=== PATIENT | male | born 1990 | race Caucasian/White ===

== ENCOUNTER → 2016-11-30 | Outpatient (CLI) | payer OTHER ==
--- NOTE | 2016-11-30 10:01 | XR ---
EXAMINATION TYPE: XR forearm RT DATE OF EXAM: 11/30/2016 9:56 AM COMPARISON: NONE HISTORY: Pain Two views of the forearm demonstrate that the osseous structures appear to be intact and the joint sp aces appear to be preserved. There is no acute fracture or dislocation. IMPRESSION: 1. No acute fracture or dislocation
== END | disposition home or self-care (01) ==
LOC: RADXRMAIN 09:36
PROVIDERS: ATTEND Emergency Medicine
DX: S56.911A Strain of unspecified muscles, fascia and tendons at forearm level, right arm, initial encounter (principal); X50.0XXA Overexertion from strenuous movement or load, initial encounter

== ENCOUNTER 2017-08-14 18:01 | Emergency (ER) | payer OTHER ==
[2017-08-14 18:05] VITALS: RESP 16
--- NOTE | 2017-08-14 18:24 | ED ---
General Adult HPI - General Chief complaint: Dental/Oral Stated complaint: dental pain Time Seen by Provider: 08/14/17 18:07 Source: patient, RN notes reviewed Mode of arrival: ambulatory Limitations: no limitations - History of Present Illness Initial comments: Patient with 27-year-old male who presents emergency room today with chief complaint of increased dental pain. He does admit that he does feel he was eating some hard candy in his tooth broke. He does admit that he's had increased pain over the last day. Patient does admit some swelling locally. Denies any drainage or discharge. She is trying to get into a dentist but found out that he does not have any dental insurance. He states he also tried to go to urgent care found out that his insurance is no longer current. Patient denies any other complaints. States been using [id number] ibuprofen for pain. Patient denies any recent fever, chills, shortness of breath , chest pain, back pain, abdominal pain, nausea or vomiting, numbness or tingling, dysuria or hematuria, constipation or diarrhea, headaches or visual changes, or any other complaints. - Related Data Previous Rx's Medication Instructions Recorded Hydrocodone/Acetaminophen [[place]hel 1 each PO Q6HR PRN #10 tab 08/14/17 5-325] Penicillin V Potassium [Pen Vee K] 500 mg PO QID #40 tablet 08/14/17 Allergies Allergy/AdvReac Type Severity Reaction Status Date / Time No Known Allergies Allergy Verified 08/14/17 18:05 Review of Systems ROS Statement: Those systems with pertinent positive or pertinent negative responses have been documented in the HPI. ROS Other: All systems not noted in ROS Statement are negative. Past Medical History Additional Past Medical History / Comment(s): AUTOIMMUNE HEMOLITIC ANEMIA History of Any Multi-Drug Resistant Organisms: None Reported Past Surgical History: No Surgical Hx Reported Past Psychological History: No Psychological Hx Reported Smoking Status: Current every day smoker Past Alcohol Use History: None Reported Past Drug Use History: None Reported General Exam - General Exam Comments Initial Comments: General: The patient is awake and alert, in no distress, and does not appear acutely ill. Eye: Pupils are equal, round and reactive to light, extra-ocular movements are intact. No nystagmus. There is normal conjunctiva bilaterally. No signs of icterus. Ears, nose, mouth and throat: There are moist mucous membranes and no oral lesions. She does have dental fracture at the gumline and tooth #2. Locally tender in this area. Uvula midline. Patient's swallows without difficulty. Neck: The neck is supple, there is no tenderness or JVD. Cardiovascular: There is a regular rate and rhythm. No murmur, rub or gallop is appreciated. Respiratory: Lungs are clear to auscultation, respirations are non-labored, breath sounds are equal. No wheezes, stridor, rales, or rhonchi. Musculoskeletal: Normal ROM, no tenderness. Strength 5/5. Sensation intact. Pulses equal bilaterally 2+. Neurological: A&O x 3. CN II-XII intact, There are no obvious motor or sensory deficits. Coordination appears grossly intact. Speech is normal. Skin: Skin is warm and dry and no rashes or lesions are noted. Psychiatric: Cooperative, appropriate mood & affect, normal judgment. Limitations: no limitations Course Vital Signs 08/14/17 18:03 Temperature 97.5 F L Pulse Rate 89 Respiratory 16 Rate Blood Pressure 146/77 O2 Sat by Pulse 98 Oximetry Medical Decision Making - Medical Decision Making Patient Lauren prescription for pain medication to use. Advised to continue with ibuprofen as well. Advised to follow dentist given information for that.. Antibiotics for infection. Advised return for any other concerns. Disposition Clinical Impression: Pain, dental Disposition: HOME SELF-CARE Condition: Good Instructions: Dental Abscess (ED) Additional Instructions: Please use medication as discussed. Please follow-up with oral surgeon as discussed. Please return to emergency room if the symptoms increase or worsen or for any other concerns. Prescriptions: Hydrocodone/Acetaminophen [Bethel 5-325] 1 each PO Q6HR PRN #10 tab PRN Reason: Pain Penicillin V Potassium [Pen Vee K] 500 mg PO QID #40 tablet Referrals: Zaid Cardoso MD [Primary Care Provider] - 1-2 days Time of Disposition: 18:23
[2017-08-14 18:38] VITALS: BP 130/76; PULSE 81; TEMP 97.2
== END 2017-08-14 18:39 | disposition home or self-care (01) ==
LOC: EC 18:01
DX: K08.89 Other specified disorders of teeth and supporting structures (principal); R22.0 Localized swelling, mass and lump, head; F17.200 Nicotine dependence, unspecified, uncomplicated
CPT/HCPCS: 99282

== ENCOUNTER 2017-12-05 15:15 | Emergency (ER) | payer BC, OTHER ==
[2017-12-05 15:19] VITALS: RESP 16
[2017-12-05 16:29] LABS: Appearance,Urine Clear (Clear); Bilirubin,Urine Negative (Negative); Blood,Urine Negative (Negative); Color,Urine Light Yellow; Glucose,Urine (UA) Negative (Negative); Ketones,Urine Negative (Negative); Leukocyte Esterase,Urine Negative (Negative); Nitrite,Urine Negative (Negative); Protein,Urine Negative (Negative); Specific Gravity,Urine 1.008 (1.001-1.035); Urobilinogen,Urine <2.0 mg/dL (<2.0)
--- NOTE | 2017-12-05 16:40 | ED ---
Male Urogenital HPI - General Chief complaint: Urogenital Stated complaint: blood in urine/near syncope Time Seen by Provider: 12/05/17 16:15 Source: patient, RN notes reviewed Mode of arrival: ambulatory Limitations: no limitations - History of Present Illness Initial comments: This a 27-year-old male presents emergency Department chief complaint of hematuria. Patient states he noticed blood in his urine for last 2 days. Patient states also when he got up around 1:30 AM to his bathroom he felt very lightheaded and fell using the past though. 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 Patient states his happened at age 5 he had suture blood transfusion at times had no issues. Patient does not take any current medications. No history kidney stones. He states the hematuria is painless denies any nausea vomiting diarrhea constipation no melanoma and she is a. Patient denies any headache or dizziness at this time he did have an episode of chest pain earlier. Patient states that symptoms feel like he is on a pass out lasted approximately 10 minutes. - Related Data Home Medications Medication Instructions Recorded Confirmed [id number] 4 tab PO TID PRN 12/05/17 12/05/17 [Excedrin] Ibuprofen [Motrin Ib] 1,000 mg PO BID PRN 12/05/17 12/05/17 Allergies Allergy/AdvReac Type Severity Reaction Status Date / Time No Known Allergies Allergy Verified 12/05/17 16:20 Review of Systems ROS Statement: Those systems with pertinent positive or pertinent negative responses have been documented in the HPI. ROS Other: All systems not noted in ROS Statement are negative. Past Medical History Additional Past Medical History / Comment(s): AUTOIMMUNE HEMOLITIC ANEMIA History of Any Multi-Drug Resistant Organisms: None Reported Past Surgical History: No Surgical Hx Reported Past Psychological History: No Psychological Hx Reported Smoking Status: Current every day smoker Past Alcohol Use History: None Reported Past Drug Use History: None Reported General Exam Limitations: no limitations General appearance: alert, in no apparent distress Head exam: Present: atraumatic, normocephalic, normal inspection Neck exam: Present: normal inspection. Absent: tenderness, meningismus, lymphadenopathy Respiratory exam: Present: normal lung sounds bilaterally. Absent: respiratory distress, wheezes, rales, rhonchi, stridor Cardiovascular Exam: Present: regular rate, normal rhythm, normal heart sounds. Absent: systolic murmur, diastolic murmur, rubs, gallop, clicks GI/Abdominal exam: Present: soft, normal bowel sounds. Absent: distended, tenderness, guarding, rebound, rigid Extremities exam: Present: normal inspection, full ROM, normal capillary refill. Absent: tenderness, pedal edema, joint swelling, calf tenderness Back exam: Absent: CVA tenderness (R), CVA tenderness (L) Skin exam: Present: warm, dry, intact, normal color. Absent: rash Course Vital Signs 12/05/17 15:17 Temperature 97.4 F L Pulse Rate 86 Respiratory 16 Rate Blood Pressure 138/81 O2 Sat by Pulse 99 Oximetry Medical Decision Making - Medical Decision Making 27-year-old male presented unresponsive to complaint of hematuria. There is no evidence of hematuria here. Patient lab work is unremarkable. Patient's urinalysis does not show any evidence of blood, bacteria or protein. Patient EKG is unremarkable. Patient states that he felt a snap pass out when he got up in the middle of the night. Patient may have had a syncopal or near syncope related to vasovagal episode. Patient will follow-up with PCP follow-up with urology if symptoms persist. Return parameters were discussed. - Lab Data Result diagrams: 12/05/17 16:55 12/05/17 16:55 Lab Results 12/05/17 12/05/17 12/05/17 Range/Units 16:00 16:55 16:55 WBC 10.1 (3.8-10.6) k/uL RBC 4.99 (4.30-5.90) m/uL Hgb 14.4 (13.0-17.5) gm/dL Hct 43.4 (39.0-53.0) % MCV 87.0 (80.0-100.0) fL MCH 29.0 (25.0-35.0) pg MCHC 33.3 (31.0-37.0) g/dL RDW 13.3 (11.5-15.5) % Plt Count 217 (150-450) k/uL Neutrophils % 67 % Lymphocytes % 21 % Monocytes % 8 % Eosinophils % 3 % Basophils % 0 % Neutrophils # 6.7 (1.3-7.7) k/uL Lymphocytes # 2.1 (1.0-4.8) k/uL Monocytes # 0.8 (0-1.0) k/uL Eosinophils # 0.4 (0-0.7) k/uL Basophils # 0.0 (0-0.2) k/uL PT (9.0-12.0) sec INR (<1.2) APTT (22.0-30.0) sec Sodium 145 (137-145) mmol/L Potassium 3.9 (3.5-5.1) mmol/L Chloride 107 (98-107) mmol/L Carbon Dioxide 27 (22-30) mmol/L Anion Gap 11 mmol/L BUN 17 (9-20) mg/dL Creatinine 0.69 (0.66-1.25) mg/dL Est GFR (CKD-EPI)AfAm >90 (>60 ml/min/1.73 sqM) Est GFR (CKD-EPI)NonAf >90 (>60 ml/min/1.73 sqM) Glucose 78 (74-99) mg/dL Calcium 9.6 (8.4-10.2) mg/dL Total Bilirubin 0.3 (0.2-1.3) mg/dL AST 25 (17-59) U/L ALT 35 (21-72) U/L Alkaline Phosphatase 67 (38-126) U/L Total Protein 6.9 (6.3-8.2) g/dL Albumin 4.3 (3.5-5.0) g/dL Lipase 59 (23-300) U/L Urine Color Light Yellow Urine Appearance Clear (Clear) Urine pH 7.0 (5.0-8.0) Ur Specific [place] 1.008 (1.001-1.035) Urine Protein Negative (Negative) Urine Glucose (UA) Negative (Negative) Urine Ketones Negative (Negative) Urine Blood Negative (Negative) Urine Nitrite Negative (Negative) Urine Bilirubin Negative (Negative) Urine Urobilinogen <2.0 (<2.0) mg/dL Ur Leukocyte Esterase Negative (Negative) 12/05/17 Range/Units 16:55 WBC (3.8-10.6) k/uL RBC (4.30-5.90) m/uL Hgb (13.0-17.5) gm/dL Hct (39.0-53.0) % MCV (80.0-100.0) fL MCH (25.0-35.0) pg MCHC (31.0-37.0) g/dL RDW (11.5-15.5) % Plt Count (150-450) k/uL Neutrophils % % Lymphocytes % % Monocytes % % Eosinophils % % Basophils % % Neutrophils # (1.3-7.7) k/uL Lymphocytes # (1.0-4.8) k/uL Monocytes # (0-1.0) k/uL Eosinophils # (0-0.7) k/uL Basophils # (0-0.2) k/uL PT 10.6 (9.0-12.0) sec INR 1.1 (<1.2) APTT 24.8 (22.0-30.0) sec Sodium (137-145) mmol/L Potassium (3.5-5.1) mmol/L Chloride (98-107) mmol/L Carbon Dioxide (22-30) mmol/L Anion Gap mmol/L BUN (9-20) mg/dL Creatinine (0.66-1.25) mg/dL Est GFR (CKD-EPI)AfAm (>60 ml/min/1.73 sqM) Est GFR (CKD-EPI)NonAf (>60 ml/min/1.73 sqM) Glucose (74-99) mg/dL Calcium (8.4-10.2) mg/dL Total Bilirubin (0.2-1.3) mg/dL AST (17-59) U/L ALT (21-72) U/L Alkaline Phosphatase (38-126) U/L Total Protein (6.3-8.2) g/dL Albumin (3.5-5.0) g/dL Lipase (23-300) U/L Urine Color Urine Appearance (Clear) Urine pH (5.0-8.0) Ur Specific [place] (1.001-1.035) Urine Protein (Negative) Urine Glucose (UA) (Negative) Urine Ketones (Negative) Urine Blood (Negative) Urine Nitrite (Negative) Urine Bilirubin (Negative) Urine Urobilinogen (<2.0) mg/dL Ur Leukocyte Esterase (Negative) - EKG Data EKG Comments: EKG performed at 16:45 normal sinus rhythm with a rate of 80 NV 174 QRS 100 QT/ QTC 360/4:15 Disposition Clinical Impression: History of hematuria, Near syncope, Feeling faint Disposition: HOME SELF-CARE Condition: Stable Instructions: Hematuria (ED) Additional Instructions: Follow-up with primary care physician and urology if symptoms persist. Please return to the Emergency Department if symptoms worsen or any other concerns. Referrals: Zaid Cardoso MD [Primary Care Provider] - 1-2 days Robert Martin MD [STAFF PHYSICIAN] - 1-2 days Time of Disposition: 18:08
[2017-12-05 17:06] LABS: Basophils % (A) 0 %; Eosinophils # (A) 0.4 k/uL (0-0.7); Eosinophils % (A) 3 %; HCT 43.4 % (39.0-53.0); HGB 14.4 gm/dL (13.0-17.5); Lymphocytes # (A) 2.1 k/uL (1.0-4.8); Lymphocytes % (A) 21 %; MCHC 33.3 g/dL (31.0-37.0); Mean Platelet Volume 7.1; Monocytes # (A) 0.8 k/uL (0-1.0); Monocytes % (A) 8 %; Neutrophils # (A) 6.7 k/uL (1.3-7.7); Neutrophils % (A) 67 %; Platelet Count 217 k/uL (150-450); RBC 4.99 m/uL (4.30-5.90); RDW 13.3 % (11.5-15.5); WBC 10.1 k/uL (3.8-10.6)
[2017-12-05 17:14] LABS: Partial Thromboplastin Time 24.8 sec (22.0-30.0)
[2017-12-05 17:21] LABS: ALT 35 U/L (21-72); AST 25 U/L (17-59); Albumin 4.3 g/dL (3.5-5.0); Alkaline Phosphatase 67 U/L (38-126); Anion Gap 11 mmol/L; Blood Urea Nitrogen 17 mg/dL (9-20); Calcium 9.6 mg/dL (8.4-10.2); Carbon Dioxide 27 mmol/L (22-30); Chloride 107 mmol/L (98-107); Glucose 78 mg/dL (74-99); Lipase 59 U/L (23-300); Potassium 3.9 mmol/L (3.5-5.1); Sodium 145 mmol/L (137-145); Total Bilirubin 0.3 mg/dL (0.2-1.3); Total Protein 6.9 g/dL (6.3-8.2)
[2017-12-05 17:25] LABS: INR 1.1 (<1.2); Prothrombin Time 10.6 sec (9.0-12.0)
[2017-12-05 18:18] VITALS: BP 126/66; PULSE 71; TEMP 97.7
== END 2017-12-05 18:18 | disposition home or self-care (01) ==
LOC: EC 15:15
DX: R55 Syncope and collapse (principal); R42 Dizziness and giddiness; R31.9 Hematuria, unspecified; R07.9 Chest pain, unspecified; F17.200 Nicotine dependence, unspecified, uncomplicated
CPT/HCPCS: 36415; 80053; 81003; 83690; 85025; 85610; 85730; 93005; 99283

== ENCOUNTER → 2019-05-10 | Outpatient (CLI) | payer BC ==
[2019-05-10 12:47] LABS: Basophils % (A) 0 %; Eosinophils # (A) 0.3 k/uL (0-0.7); Eosinophils % (A) 3 %; HCT 48.5 % (39.0-53.0); Lymphocytes # (A) 2.2 k/uL (1.0-4.8); Lymphocytes % (A) 23 %; MCH 30.4 pg (25.0-35.0); MCV 92.2 fL (80.0-100.0); Mean Platelet Volume 7.4; Monocytes # (A) 0.9 k/uL (0-1.0); Monocytes % (A) 9 %; Neutrophils % (A) 62 %; Platelet Count 229 k/uL (150-450); RBC 5.27 m/uL (4.30-5.90); RDW 13.7 % (11.5-15.5); WBC 9.7 k/uL (3.8-10.6)
--- NOTE | 2019-05-10 18:27 | XR ---
EXAMINATION TYPE: XR Hip Complete 2 views RT, XR lumbosacral spine min 5 views, XR knee complete 3 views RT DATE OF EXAM: 05/10/2019 COMPARISON: NONE HISTORY: 28-year-old male with right knee pain, right hip pain, and right-sided back pain after fall 2 months ago. FINDINGS: Right hip: Tiny os acetabuli versus degenerative labral ossification along the superior margin of the acetabulum . Hip joint space is maintained. No acute fracture, subluxation, or dislocation. Right knee: No acute fracture, subluxation, or dislocation. Known knee joint effusion. Bone island within the pro ximal femoral shaft. Lumbar spine: No pars interarticularis defect. Vertebral body heights are preserved as are disc interspaces. Alignm ent maintained. IMPRESSION: 1. Lumbar spine: No vertebral compression collapse or malalignment. 2. Right hip: Tiny os acetabuli versus degenerative labral ossification along the superior margin of the acetabulum. No acute osseous abnormality seen. 3. Right knee: No acute osseous abnormality seen.
[2019-05-10 20:36] LABS: African American GFR (CKD) 136.1 (60.0-200.0); Albumin 4.7 g/dL (3.80-4.90); Albumin/Globulin Ratio 2.47 (1.60-3.17); Anion Gap 7.2 mmol/L (4.00-12.00); BUN/Creat Ratio 16.67 Ratio (12.00-20.00); Calcium 9.5 mg/dL (8.7-10.3); Carbon Dioxide 28.8 mmol/L (21.6-31.8); Chol/HDL Ratio 3.85; Globulin 1.9 g/dL (1.6-3.3); Potassium 4.4 mmol/L (3.5-5.5); Total Bilirubin 0.5 mg/dL (0.3-1.2); Total Protein 6.6 g/dL (6.2-8.2)
[2019-05-10 20:45] LABS: T4, Free (Free Thyroxine) 1.2 ng/dL (0.80-1.80)
== END | disposition home or self-care (01) ==
LOC: LABWHC1 12:09
PROVIDERS: ATTEND Nurse Practitioner Family
DX: M25.561 Pain in right knee (principal); M54.16 Radiculopathy, lumbar region; Z00.00 Encounter for general adult medical examination without abnormal findings; F43.23 Adjustment disorder with mixed anxiety and depressed mood; F17.210 Nicotine dependence, cigarettes, uncomplicated; W11.XXXA Fall on and from ladder, initial encounter
CPT/HCPCS: 36415; 72110; 73502; 80053; 80061; 84439; 84443; 85025

== ENCOUNTER 2020-03-16 22:27 | Emergency (ER) | payer BC ==
[2020-03-16 22:34] VITALS: TEMP 98
[2020-03-16] MEDS ORDERED: KETOROLAC 30 MG/ML 1 ML VIAL IM STA (22:46)
[2020-03-16] MEDS ORDERED: MORPHINE SULFATE 4 MG/ML SYRINGE IM STA (22:46)
[2020-03-16] MEDS ORDERED: LIDOCAINE 5% PATCH TOPICAL STA (22:46)
--- NOTE | 2020-03-16 22:48 | ED ---
General Adult HPI - General Chief complaint: Fall Stated complaint: Fall,Poss Rib Injury Time Seen by Provider: 03/16/20 22:42 Source: patient Mode of arrival: wheelchair Limitations: no limitations - History of Present Illness Initial comments: Dictation was produced using [employer] dictation software. please excuse any grammatical, word or spelling errors. This patient was cared for during a federal and state declared state of emergency secondary to Covid 19 Chief Complaint: 29-year-old male presents with left chest pain. History of Present Illness: Patient 29-year-old male presents with left chest pain. Patient states he was chasing his brother when he tripped and fell. He landed on his left fist with his left chest. Patient states that since then he has been having severe left-sided chest pain. Patient states it hurts when he takes a deep breath. Says that his pain is really bad when he presses on the area. The ROS documented in this emergency department record has been reviewed and confirmed by me. Those systems with pertinent positive or negative responses have been documented in the HPI. All other systems are other negative and/or noncontributory. PHYSICAL EXAM: General Impression: Alert and oriented x3, not in acute distress HEENT: Normocephalic atraumatic, extra-ocular movements intact, pupils equal and reactive to light bilaterally, mucous membranes moist. Cardiovascular: Heart regular rate and rhythm Chest: Able to complete full sentences, no retractions, no tachypnea, bilateral breath sounds, tenderness to palpation over the left chest. He has pain to the left chest with palpation to the left posterior ribs Abdomen: abdomen soft, non-tender, non-distended, no organomegaly Musculoskeletal: Pulses present and equal in all extremities, no peripheral edema Motor: no focal deficits noted Neurological: CN II-XII grossly intact, no focal motor or sensory deficits noted Skin: Intact with no visualized rashes Psych: Normal affect and mood ED course: 29-year-old male presents with chest pain after fall. Vital signs upon arrival are within acceptable limits. Chest x-ray and rib x-rays unremarkable. She landed a patch, IM Toradol and IM morphine with slightly improved symptoms. patient given Tylenol No. 3 starter pack. Patient advised to follow-up with primary care physician. - Related Data Home Medications Medication Instructions Recorded Confirmed [id number] 4 tab PO TID PRN 12/05/17 12/05/17 [Excedrin] Ibuprofen [Motrin Ib] 1,000 mg PO BID PRN 12/05/17 12/05/17 Allergies Allergy/AdvReac Type Severity Reaction Status Date / Time No Known Allergies Allergy Verified 03/16/20 22:34 Review of Systems ROS Statement: Those systems with pertinent positive or pertinent negative responses have been documented in the HPI. ROS Other: All systems not noted in ROS Statement are negative. Past Medical History Additional Past Medical History / Comment(s): AUTOIMMUNE HEMOLITIC ANEMIA History of Any Multi-Drug Resistant Organisms: None Reported Past Surgical History: No Surgical Hx Reported Past Psychological History: No Psychological Hx Reported Smoking Status: Current every day smoker Past Alcohol Use History: None Reported Past Drug Use History: None Reported General Exam Limitations: no limitations Course Vital Signs 03/16/20 22:31 Temperature 98 F Pulse Rate 84 Respiratory 18 Rate Blood Pressure 127/81 O2 Sat by Pulse 97 Oximetry Disposition Clinical Impression: Chest wall contusion Disposition: HOME SELF-CARE Condition: Good Instructions (If sedation given, give patient instructions): Costochondritis (ED) Is patient prescribed a controlled substance at d/c from ED?: No Referrals: Jose L Casas MD [Primary Care Provider] - 1-2 days Time of Disposition: 23:28
--- NOTE | 2020-03-16 23:04 | XR ---
EXAMINATION TYPE: XR ribs LT DATE OF EXAM: 03/16/2020 COMPARISON: NONE HISTORY: Fall. Pain. TECHNIQUE: 4 views There is no pleural effusion or pneumothorax. Left lung is clear of infiltrate. I see no rib fractur e. IMPRESSION: Negative left rib exam. No fracture.
--- NOTE | 2020-03-16 23:09 | XR ---
EXAMINATION TYPE: XR chest 2V DATE OF EXAM: 03/16/2020 COMPARISON: 03/30/2011 HISTORY: Fall. Rib pain. TECHNIQUE: FINDINGS: Heart and mediastinum are normal. Lungs are clear. Diaphragm is normal. Bony thorax appears normal. IMPRESSION: Normal chest. No change.
[2020-03-16] MEDS ORDERED: ACET/COD 300 MG/30 MG STARTER PACK 6 TAB BTL PO STA (23:25)
[2020-03-16 23:36] VITALS: BP 118/76; PULSE 79; RESP 20
== END 2020-03-16 23:36 | disposition home or self-care (01) ==
LOC: SUPCPDRO 22:27 → EC 22:27
DX: S20.212A Contusion of left front wall of thorax, initial encounter (principal); F17.200 Nicotine dependence, unspecified, uncomplicated; W01.0XXA Fall on same level from slipping, tripping and stumbling without subsequent striking against object, initial encounter; Y93.02 Activity, running
CPT/HCPCS: 71100; 71046; 96372 ×2; 99285; J2270; J1885

== ENCOUNTER 2022-03-25 03:20 | Emergency (ER) | payer BC, OTHER ==
[2022-03-25 03:38] VITALS: BP 148/99; PULSE 67; RESP 18; TEMP 98.6
[2022-03-25] MEDS ORDERED: IBUPROFEN 600 MG STARTER PACK 4 TAB BTL PO STA (05:05)
[2022-03-25] MEDS ORDERED: ACET/COD 300 MG/30 MG STARTER PACK 6 TAB BTL PO STA (05:05)
[2022-03-25] MEDS ORDERED: AMOXIC-POT CLAV 875MG STARTER PACK 2 TAB BTL PO STA (05:05)
--- NOTE | 2022-03-25 05:06 | ED ---
ENT HPI - General Chief complaint: Dental/Oral Stated complaint: rt side facial pain Time Seen by Provider: 03/25/22 03:54 Source: patient Mode of arrival: ambulatory - History of Present Illness Initial comments: Patient is 31-year-old man with right sided dental pain which has been getting worse over past couple of days. MD complaint: tooth pain -: days(s) Severity: moderate Quality: aching Consistency: constant Improves with: none Worsens with: none - Related Data Home Medications Medication Instructions Recorded Confirmed [id number] 4 tab PO TID PRN 12/05/17 12/05/17 [Excedrin] Ibuprofen [Motrin Ib] 1,000 mg PO BID PRN 12/05/17 12/05/17 Previous Rx's Medication Instructions Recorded Amoxic-Pot Clav 875-125Mg 1 tab PO Q12HR 1 Days #20 tab 03/25/22 [Augmentin 875-125] Allergies Allergy/AdvReac Type Severity Reaction Status Date / Time No Known Allergies Allergy Verified 03/25/22 03:38 Review of Systems ROS Statement: Those systems with pertinent positive or pertinent negative responses have been documented in the HPI. ROS Other: All systems not noted in ROS Statement are negative. Constitutional: Denies: fever, chills Eyes: Denies: eye pain, vision change ENT: Reports: dental pain. Denies: ear pain Respiratory: Denies: cough, dyspnea Neurological: Denies: headache, weakness Past Medical History Additional Past Medical History / Comment(s): AUTOIMMUNE HEMOLITIC ANEMIA History of Any Multi-Drug Resistant Organisms: None Reported Past Surgical History: No Surgical Hx Reported Past Psychological History: No Psychological Hx Reported Smoking Status: Never smoker Past Alcohol Use History: None Reported Past Drug Use History: None Reported General Exam General appearance: alert, in no apparent distress Head exam: Present: atraumatic, normocephalic Eye exam: Present: normal appearance, PERRL, EOMI ENT exam: Present: other (Dental caries. No abscess. No sublingual or neck swelling or tenderness) Neck exam: Present: normal inspection, full ROM. Absent: tenderness, meningismus, lymphadenopathy Respiratory exam: Present: normal lung sounds bilaterally. Absent: respiratory distress, wheezes, rales, rhonchi, stridor Cardiovascular Exam: Present: regular rate, normal rhythm, normal heart sounds. Absent: systolic murmur Skin exam: Present: warm, dry, intact, normal color. Absent: rash Course Vital Signs 03/25/22 03:36 Temperature 98.6 F Pulse Rate 67 Respiratory 18 Rate Blood Pressure 148/99 O2 Sat by Pulse 100 Oximetry Disposition Clinical Impression: Toothache, Dental caries Disposition: HOME SELF-CARE Condition: Good Instructions (If sedation given, give patient instructions): Toothache (ED) Prescriptions: Amoxic-Pot Clav 875-125Mg [Augmentin 875-125] 1 tab PO Q12HR 1 Days #20 tab Is patient prescribed a controlled substance at d/c from ED?: No Referrals: Jose L Casas MD [Primary Care Provider] - 1-2 days
== END 2022-03-25 05:23 | disposition home or self-care (01) ==
LOC: EC 03:20
DX: K02.9 Dental caries, unspecified (principal)
CPT/HCPCS: 99282

== ENCOUNTER → 2024-05-22 | Outpatient (CLI) | payer OTHER ==
--- NOTE | 2024-05-22 08:01 | CT ---
EXAMINATION TYPE: CT brain primo sethi DATE OF EXAM: 05/22/2024 COMPARISON: None HISTORY: syncope with fall x2 months ago. CT DLP: 2020.[address] Brain: Unenhanced CT of the brain was performed. The ventricles, basal cisterns and sulci overlying the cerebral convexities demonstrate a normal appe arance. There is no evidence for intracranial hemorrhage or sulcal effacement. No mass effects are seen. If symptoms persist consider MRI. Osseous calvarium is intact. IMPRESSION: No acute intracranial process CT Cervical Spine: Unenhanced CT of the cervical spine was performed with bone and soft tissue window settings submitted . Coronal and sagittal reconstruction is obtained. There is normal alignment and prevertebral soft tissues. I do not see evidence for fracture or sublu xation. No significant degenerative changes are present. The lung apices are clear. IMPRESSION: No evidence for acute fracture or subluxation of the cervical spine.
--- NOTE | 2024-06-08 14:50 | CE ---
CARDIAC ELECTROPHYSIOLOGY REPORT STUDY: A 24-hour Holter monitor. INDICATION: Rule out cardiac arrhythmia. FINDINGS: The patient was monitored for 24 hours. The baseline rhythm appeared to be sinus mechanism with an average heart rate of 76 beats per minute and minimum heart rate of 40 and maximum heart rate of 171. Ventricular ectopic events were not noted. Supraventricular ectopic events were rare and presented as PACs only. No significant sinus pause or sinus arrest. The patient reported no symptoms. CONCLUSION: 1. This is a 24-hour monitor. 2. The baseline rhythm is a sinus mechanism. 3. No significant arrhythmia noted. 4. No significant sinus pause or sinus arrest. 5. No SVT was noted. 6. No atrial fibrillation was noted. MMODL / IJN: [id number] /
== END | disposition home or self-care (01) ==
LOC: RADCTMAIN 06:54
PROVIDERS: ATTEND Family Medicine
DX: R55 Syncope and collapse (principal)
CPT/HCPCS: 70450; 72125; 93225